=== PATIENT | male | born 2000 | race Caucasian/White ===

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

== ENCOUNTER 2022-08-18 16:47 | Emergency (ER) | payer MEDICAID ==
[2022-08-18 17:05] VITALS: BP_SYST 138
[2022-08-18] MEDS ORDERED: IBUPROFEN 800 MG TABLET PO ONE (17:15)
[2022-08-18] MEDS ORDERED: IBUP-1971 PO (18:35)
[2022-08-18 19:00] VITALS: BP_SYST 108
== END 2022-08-18 19:03 | disposition home or self-care (01) ==
LOC: SED 16:47
DX: S60.221A Contusion of right hand, initial encounter (principal); Z79.899 Other long term (current) drug therapy; W22.8XXA Striking against or struck by other objects, initial encounter; Y93.89 Activity, other specified; Y92.89 Other specified places as the place of occurrence of the external cause; Y99.8 Other external cause status
CPT/HCPCS: 99283